=== PATIENT | female | born 1985 | race Caucasian/White ===

== ENCOUNTER 2018-09-09 06:48 | Outpatient (CLI) | payer OTHER ==
[2018-09-09 07:42] LABS: BILIRUBIN,URINE NEGATIVE (NEGATIVE); COLOR,URINE STRAW; GLUCOSE, URINE NEGATIVE (NEGATIVE); KETONES,URINE NEGATIVE (NEGATIVE); LEUKOCYTE ESTERASE,URINE LARGE (NEGATIVE); NITRITE,URINE NEGATIVE (NEGATIVE); PROTEIN,URINE NEGATIVE (NEGATIVE); UROBILINOGEN,URINE NEGATIVE mg/dL (<2.0)
[2018-09-09 07:47] LABS: APPEARANCE,URINE SLIGHTLY-CLOUDY; URINE SPECIFIC GRAVITY 1.012
[2018-09-09 08:07] LABS: URINE AMPHETAMINES SCREEN NEGATIVE; URINE BARBITURATES SCREEN NEGATIVE; URINE BENZODIAZEPINES SCREEN NEGATIVE; URINE COCAINE SCREEN NEGATIVE; URINE MARIJUANA (THC) SCREEN NEGATIVE; URINE METHADONE SCREEN NEGATIVE; URINE PHENCYCLIDINE SCREEN NEGATIVE
[2018-09-09] MEDS ORDERED: HYDROXYZINE PAMOATE 50 MG CAPSULE PO ONE (08:48)
[2018-09-09] MEDS ORDERED: HYDROXYZINE PAMOATE 50 MG CAPSULE ONE (08:53)
--- NOTE | 2018-09-09 09:16 | Non Stress Test Report ---
Non Stress Test Datetime Report Generated by CPN: 09/09/2018 09:15 DEMOGRAPHIC EGA NST: 40.2 INDICATION Indication for Study: Other Indication for Study (NST) Other: LABOR CHECK MONITORING Monitor Explained: Monitor Explained; Test Explained; Patient Verbalized Understanding Time on Monitor: 09/09/2018 07:21 Time off Monitor: 09/09/2018 08:38 NST Duration: 77 NST INTERVENTIONS NST Interventions: PO Hydration; Reposition Patient Physician Notified NST: DR AVILES BABY A: [id number] BABY A Movement : Present Contraction Frequency : 5-9 FHR Baseline : 125 Accelerations : 15X15 Decelerations : None Variability : Moderate 6-25bpm NST Review: Meets Criteria for Reactive NST NST Review and Verified By : MARLENA George Results: Reactive NST REPORT Report Trigger: Send Report
== END 2018-09-09 09:02 | disposition home or self-care (01) ==
LOC: LC 06:48
PROVIDERS: ATTEND Obstetrics & Gynecology
DX: O36.8330 Maternal care for abnormalities of the fetal heart rate or rhythm, third trimester, not applicable or unspecified (principal); Z3A.40 40 weeks gestation of pregnancy
CPT/HCPCS: 59025; 80307; 81005

== ENCOUNTER 2018-09-09 15:53 | Inpatient (IN) | payer OTHER ==
[2018-09-09] MEDS ORDERED: MISOPROSTOL 0.2 MG TABLET ONE (16:07)
[2018-09-09] MEDS ORDERED: OXYTOCIN 10 UNIT/ML VIAL ONE (16:07)
[2018-09-09] MEDS ORDERED: LIDOCAINE 1% INJ-PF (10 MG/ML) 30 ML SDV ONE (16:08)
[2018-09-09] MEDS ORDERED: OXYTOCIN/NORMAL SALINE 20 UNIT/1,000 ML RTUINJ ONE (16:08)
[2018-09-09] MEDS ORDERED: LIDOCAINE 2% JELLY 5 ML TUBE ONE (16:16)
[2018-09-09] MEDS ORDERED: RINGERS SOLUTION,LACTATED 1,000 ML IV PRN (16:58)
[2018-09-09] MEDS ORDERED: DIBUCAINE 1% OINTMENT 56 GM TP PRN (16:59)
[2018-09-09] MEDS ORDERED: BENZOCAINE/MENTHOL AEROSOL SPRAY 56 ML TOP PRN (16:59)
[2018-09-09] MEDS ORDERED: DIPH/PERTUSS(ACELL)/TETANUS VAC/PF 0.5 ML SYR (>=10YO) IM PRN (16:59)
[2018-09-09] MEDS ORDERED: ZOLPIDEM TARTRATE 5 MG TABLET PO PRN (16:59)
[2018-09-09] MEDS ORDERED: OXYTOCIN/NORMAL SALINE 20 UNIT/1,000 ML RTUINJ IV PRN (16:59)
[2018-09-09] MEDS ORDERED: MEASLES,MUMPS&RUBELLA VACC/PF 0.5 ML VIAL SUBCUT PRN (16:59)
--- NOTE | 2018-09-09 17:07 | Admission Physical ---
Datetime Report Generated by CPN: 09/09/2018 17:07 CURRENT ADMISSION Chief Complaint: Uterine Contractions Chief Complaint Other: strong rectal pressure and urge to push Admit Impression : Term, Intrauterine ; Active Labor; Intact Membranes Admit Impression- Other: Imminent Admit Plan: Admit to Unit ALLERGIES Medication Allergies: No Known Allergies (11/12/2014) OBSTETRICAL HISTORY EDC: 09/07/2018 00:00 : 2 Para: 1 Term: 1 : 0 SAB: 0 IAB: 0 Ectopic: 0 Livin Cesareans: 0 VBACs: 0 Multiple Births: 0 PHYSICAL EXAM General: Normal HEENT: Normal Neurologic: Normal Thyroid: Normal Heart: Normal Lungs: Normal Breast: Normal Back: Normal Abdomen: Normal Genitourinary Exam: Normal Extremities: Normal DTRs: Normal Pelvic Type: Adequate Vital Signs: Reviewed VAGINAL EXAM Dilatation: 10 Effacement: 100 Station: 0 Contraction Comments: q2 MEMBRANES Membranes: Bulging FETUS A EGA: 40.2 Monitoring: External US Admit Comment: Pt presents c/o strong urge to push at 40.2 days. GBS negative, VE C/100/0. Preparing for . Attending MD is Dr Marshal PLANS FOR LABOR AND DELIVERY Feeding Preference: Breast INFORMED CONSENT Assignment: Char Araya MD Signature: with User ID: Shawn : with User ID: Shawn
[2018-09-09] MEDS ORDERED: ACETAMINOPHEN WITH CODEINE #3 TABLET ONE (17:13)
[2018-09-09] MEDS ORDERED: IBUPROFEN 800 MG TABLET ONE (17:13)
[2018-09-09] MEDS: IBUPROFEN 800 MG TABLET PO SCH ×2 (17:22→22:17)
[2018-09-09] MEDS: ACETAMINOPHEN WITH CODEINE #3 TABLET PO PRN ×2 (17:23→22:22)
[2018-09-09 17:50] LABS: ABSOLUTE BASOPHILS # (AUTO) 0.2 10^3/uL (0.0-0.2); ABSOLUTE LYMPHOCYTES (AUTO) 1.2 10^3/uL (0.5-4.7); ABSOLUTE MONOCYTES (AUTO) 0.6 10^3/uL (0.1-1.4); ABSOLUTE NEUT (AUTO) 14.6 10^3/uL (1.7-8.2); EOSINOPHILS % (AUTO) 0.1 % (0-6); HEMATOCRIT 39.6 % (36.0-47.0); HEMOGLOBIN 13.6 g/dL (12.0-15.5); LYMPHOCYTES % (AUTO) 7.1 % (13-45); MEAN CORPUSCULAR HEMOGLOBIN 30.9 pg (27.0-33.4); MEAN CORPUSCULAR HGB CONC 34.4 g/dL (32.0-36.0); MEAN CORPUSCULAR VOLUME 90 fl (80-97); MONOCYTES % (AUTO) 3.4 % (3-13); PLATELET COUNT 152 10^3/uL (150-450); RED BLOOD COUNT 4.41 10^6/uL (3.72-5.28); RED CELL DISTRIBUTION WIDTH 12.8 % (11.5-14.0); SEGMENTED NEUTROPHILS % (AUTO) 88.4 % (42-78); TOTAL CELLS COUNTED % (AUTO) 100 %; WHITE BLOOD COUNT 16.5 10^3/uL (4.0-10.5)
[2018-09-09] MEDS: DOCUSATE SODIUM 100 MG CAPSULE PO SCH (20:05)
[2018-09-09] MEDS: FERROUS SULFATE 325 MG TABLET PO SCH (20:05)
[2018-09-10] MEDS: IBUPROFEN 800 MG TABLET PO SCH ×3 (05:37→21:44)
[2018-09-10 06:35] LABS: URINE AMPHETAMINES SCREEN NEGATIVE; URINE BARBITURATES SCREEN NEGATIVE; URINE BENZODIAZEPINES SCREEN NEGATIVE; URINE COCAINE SCREEN NEGATIVE; URINE MARIJUANA (THC) SCREEN NEGATIVE; URINE METHADONE SCREEN NEGATIVE; URINE PHENCYCLIDINE SCREEN NEGATIVE
[2018-09-10 06:50] LABS: HEMATOCRIT 34.2 % (36.0-47.0); HEMOGLOBIN 11.6 g/dL (12.0-15.5); MEAN CORPUSCULAR HEMOGLOBIN 30.6 pg (27.0-33.4); MEAN CORPUSCULAR HGB CONC 33.8 g/dL (32.0-36.0); MEAN CORPUSCULAR VOLUME 91 fl (80-97); PLATELET COUNT 133 10^3/uL (150-450); RED BLOOD COUNT 3.78 10^6/uL (3.72-5.28); RED CELL DISTRIBUTION WIDTH 12.9 % (11.5-14.0); WHITE BLOOD COUNT 13.6 10^3/uL (4.0-10.5)
[2018-09-10] MEDS: PRENATAL VITAMIN W DHA CAPSULE PO SCH (09:28)
[2018-09-10] MEDS: SENNOSIDES/DOCUSATE 8.6-50 MG 1 EACH TABLET PO SCH (09:28)
[2018-09-10] MEDS: DOCUSATE SODIUM 100 MG CAPSULE PO SCH ×2 (09:28→17:35)
[2018-09-10] MEDS: FERROUS SULFATE 325 MG TABLET PO SCH ×2 (09:28→17:35)
--- NOTE | 2018-09-10 10:00 | PDOC PROGRESS REPORT ---
Subjective-OB Progress Note for:: 09/10/18 Subjective: Pt doing well, resting in bed with baby. She denies pain, reports regular diet, voiding without difficulty and light bleeding. Physical Exam (OB) Vital Signs: Temp Pulse Resp BP Pulse Ox 98.5 F 78 18 127/70 H 100 09/09/18 19:51 09/09/18 19:51 09/09/18 19:51 09/09/18 19:51 09/09/18 19:51 - Lochia Lochia Amount: Small 10-25 ml Lochia Color: Rubra/Red - Abdomen Description: Soft Hernia Present: No Fundal Description: Firm, Midline Fundal Height: u/u - u/2 Objective-Diagnostic Laboratory: 09/10/18 06:14 09/09/18 09/09/18 09/10/18 17:32 17:32 06:14 WBC 16.5 H 13.6 H RBC 4.41 3.78 Hgb 13.6 11.6 L Hct 39.6 34.2 L MCV 90 91 MCH 30.9 30.6 MCHC 34.4 33.8 RDW 12.8 12.9 Plt Count 152 133 L Seg Neutrophils % 88.4 H Lymphocytes % 7.1 L Monocytes % 3.4 Eosinophils % 0.1 Basophils % 1.0 Absolute Neutrophils 14.6 H Absolute Lymphocytes 1.2 Absolute Monocytes 0.6 Absolute Eosinophils 0.0 Absolute Basophils 0.2 Blood Type O POSITIVE Antibody Screen NEGATIVE Assessment and Plan(PN) - Assessment and Plan (1) Delivery normal Is this a current diagnosis for this admission?: Yes - Time Spent with Patient Time with patient: Less than 15 minutes Medications reviewed and adjusted accordingly: Yes - Disposition Anticipated Discharge: Home Within: within 24 hours
[2018-09-11] MEDS: IBUPROFEN 800 MG TABLET PO SCH ×2 (05:51→13:13)
[2018-09-11 08:02] VITALS: BP 116/69
[2018-09-11] MEDS: FERROUS SULFATE 325 MG TABLET PO SCH (09:45)
[2018-09-11] MEDS: DOCUSATE SODIUM 100 MG CAPSULE PO SCH (09:45)
[2018-09-11] MEDS: PRENATAL VITAMIN W DHA CAPSULE PO SCH (09:45)
[2018-09-11] MEDS: SENNOSIDES/DOCUSATE 8.6-50 MG 1 EACH TABLET PO SCH (09:45)
--- NOTE | 2018-09-11 09:48 | PDOC PROGRESS REPORT ---
Subjective-OB Progress Note for:: 09/11/18 Subjective: Ready for discharge. Physical Exam (OB) Vital Signs: Temp Pulse Resp BP Pulse Ox 98.2 F 72 19 116/69 100 09/11/18 08:00 09/11/18 08:00 09/11/18 08:00 09/11/18 08:00 09/11/18 08:00 - PIH/Pre-Eclampsia DTR's: 2 + Clonus: Negative Headache: Absent Epigastric Pain: No Visual Changes: No - Lochia Lochia Amount: Small 10-25 ml Lochia Color: Rubra/Red - Abdomen Description: Soft, Round Hernia Present: No Bowel Sounds: Normoactive Flatus Presence: Present Stool: Yes Fundal Description: Firm, Midline Fundal Height: u/u - u/2 Objective-Diagnostic Laboratory: 09/10/18 06:14 Assessment and Plan(PN) - Time Spent with Patient Medications reviewed and adjusted accordingly: Yes - Disposition Anticipated Discharge: Home
--- NOTE | 2018-09-11 09:53 | PDOC DISCHARGE SUMMARY ---
Final Diagnosis Discharge Date: 09/11/18 - Final Diagnosis (1) Delivery normal Is this a current diagnosis for this admission?: Yes (2) Is this a current diagnosis for this admission?: Yes Discharge Data - Discharge Medication Home Medications: No.137/Iron/Folic Acd [ Vitamin Tablet] 1 tab PO DAILY 11/12/14 Acetaminophen [Tylenol 325 mg Tablet] 650 mg PO PRN PRN 09/09/18 Gestational Age: 40.2 wks Reason(s) for Admission: Onset of Labor Procedures: Ultrasound Intrapartum Procedure(s): Spontaneous Vaginal Delivery Complication(s): Laceration-Vaginal, Laceration-Perineal Laceration-Degree: 2nd - Data Baby 1 Male at 1 minute: 9 at 5 minutes: 9 Weight: 3.43 kg Home with Mother: Yes Complications: No - Diagnosis Test Laboratory: Temp Pulse Resp BP Pulse Ox 98.2 F 72 19 116/69 100 09/11/18 08:00 09/11/18 08:00 09/11/18 08:00 09/11/18 08:00 09/11/18 08:00 09/09/18 09/10/18 09/10/18 17:32 05:50 06:14 RBC 4.41 3.78 Hgb 13.6 11.6 L Hct 39.6 34.2 L Urine Opiates Screen UNCONFIRMED POSITIVE - Discharge information/Instructions Discharge Activity: Activity As Tolerated, Balance Activity w/Rest, Pelvic Rest, Slowly Increase Activity, No tub bath Discharge Diet: Regular Disposition: HOME, SELF-CARE Follow up with: [facility] in: 4, Weeks
--- NOTE | 2018-09-15 07:09 | Delivery Summary ---
Del Sum A-C Datetime Report Generated by CPN: 09/15/2018 07:09 DELIVERY PERSONNEL DELIVERY PERSONNEL: [id number] Delivery Doctor:: Paty Shaver CNM Labor and Delivery Nurse:: Sallie Tucker RN Labor and Delivery Nurse:: Ebony Araya RN Nursery Nurse:: Humaira Navarro RN Student Observers:: ST Jennifer PANTOJA ST Supervisor Production Managing/FREIGHT CLERK: ST Mathew Supervisor Production Managing/FREIGHT CLERK: Hayde Altamirano, MANAGER CHEMICAL MATERNAL INFORMATION Delivery Anesthesia: Local Medications After Delivery: Pitocin 10 Units IM; Other-Please Comment Meds After Delivery Comment: CYTOTEC 200 MCG SL Delivery QBL: 300 Maternal Complications: Precipitous Labor (<3hrs) Provider Comments: AROM w/ Clear fluid noted just prior to starting to push. of VMI, SHWETA position, tight NC, pt pushed through and reduced after delivery. PLaced on pts abdoman vigorous and crying. Cord clamped and cut after 90 seconds. Cord blood gas obtained. Placenta S/C/I, IM Pitocin given, 200 mcg Cytotec given SL. Vaginal laceration repaired. Pt tolerated well. Mother and baby left skin to skin in stable condition, pt plans to breastfeed. Apgars 9, 9. QBL 300 ml LABOR SUMMARY EDC: 09/07/2018 00:00 No. Babies in Womb: 1 Attempted: No Labor Anesthesia: None LABOR INFORMATION Reason for Induction: Not Applicable Complete Dilatation: 09/09/2018 16:05 Oxytocin: N/A Group B Beta Strep: NEGATIVE Antibiotics # of Doses: 0 Steroids Given: None Reason Steroids Not Administered: Not Applicable MEMBRANES Membranes Rupture Method: Artificial Rupture of Membranes: 09/09/2018 16:05 Length of Rupture (hr): 0.30 Amniotic Fluid Color: Clear Amniotic Fluid Amount: Small STAGES OF LABOR Stage 2 hr: 0 Stage 2 min: 18 Stage 3 hr: 0 Stage 3 min: 7 VAGINAL DELIVERY Episiotomy: None Laceration #1: Perineal Laceration Extension #1: Second Degree Other Laceration: 2 DEGREE RT VAG SIDEWALL LAC Laceration Repair: Yes Laceration Repair Note: 2nd degree laceration and Rt vaginal side wall repaired with 3.0 vicryl using lidocaine injection Sponge Count Correct: N/A Sharps Count Correct: N/A BABY A INFORMATION Delivery Date/Time: 09/09/2018 16:23 Method of Delivery: Vaginal Method of Delivery: Vaginal Born in Route : No : N/A Forceps: N/A Vacuum Extraction: N/A PRESENTATION/POSITION BABY A Presentation: Cephalic Cephalic Presentation: Vertex Vertex Position: Left Occipital Anterior Breech Presentation: N/A PLACENTA INFORMATION BABY A Placenta Delivery Time : 09/09/2018 16:30 Placenta Method of Delivery: Spontaneous Placenta Status: Delivered SCORES BABY A Heart Rate 1 min: >100 bpm Resp Effort 1 min: Good Cry Reflex Irritability 1 min: Cough or Sneeze or Pulls Away Muscle Tone 1 min: Active Motion Color 1 min: Body [place], Extremities Blue Resuscitation Effort 1 min: Tactile Stimulation SCORE 1 MIN: 9 Heart Rate 5 min: >100 bpm Resp Effort 5 min: Good Cry Reflex Irritability 5 min: Cough or Sneeze or Pulls Away Muscle Tone 5 min: Active Motion Color 5 min: Body [place], Extremities Blue Resuscitation Effort 5 min: Tactile Stimulation SCORE 5 MIN: 9 INFORMATION BABY A Gestational Age at Delivery: 40.2 Gestational Status: Full Term- 39- 40.6 Weeks Outcome : Liveborn Infant Condition : Stable Infant Sex: Male IDENTIFICATION BABY A Verification Date/Time: 09/09/2018 16:55 ID Band Number: [id number] Mother's Name Verified: Yes Infant RN Verifying : KATTY TUCKER, RN Additional Verifying Personnel: S DANIILIZZA WEIGHT/LENGTH BABY A Birthweight (gm): 3423 Weight (lb): 7 Weight (oz): 9 Length (in): 20.00 Length (cm): 50.80 CORD INFORMATION BABY A No. Cord Vessels: 3 Nuchal Cord : Around Neck x1, Loose Cord Blood Taken: Yes-For Eval (Mom's Blood Type - or O+) Infant Suction: None ASSESSMENT BABY A Infant Complications: None Physical Findings at Delivery: Within Normal Limits Infant Respirations: Appears Normal Skin to Skin: Yes Health Careers Instructor/ALS Called : No Infant Care By: Meek NAVARRO RN Transferred To: Remains with Mother BABY B INFORMATION : N/A SIGNATURES Assignment: Char Araya MD Signature: with User ID: Shawn : with User ID: Shawn
== END 2018-09-11 13:33 | disposition home or self-care (01) | DRG 807 ==
LOC: LC 15:53 → LR 16:11 → 2S 18:54
PROVIDERS: ADMIT Obstetrics & Gynecology; ATTEND Obstetrics & Gynecology
PROC: 10E0XZZ Delivery of Products of Conception, External Approach (ICD-10-PCS; principal; 2018-09-09)
PROC: 0KQM0ZZ Repair Perineum Muscle, Open Approach (ICD-10-PCS; 2018-09-09)
DX: O69.81X0 Labor and delivery complicated by cord around neck, without compression, not applicable or unspecified (principal); Z37.0 Single live birth; O62.3 Precipitate labor; O70.1 Second degree perineal laceration during delivery; Z3A.40 40 weeks gestation of pregnancy
CPT/HCPCS: 36415; 80307; 85025; 85027; 86592; 86850; 86900; 86901; J2590; J3490